=== PATIENT | female | born 1990 | race African-American/Black ===

== ENCOUNTER → 2017-11-13 | Outpatient (CLI) | payer BC ==
[2017-11-13 11:16] LABS: BASOPHILS % 0.6 % (0.0-2.0); EOSINOPHILS % 6.9 % (0.0-5.0); HEMATOCRIT. 40.1 % (36.0-48.0); HEMOGLOBIN. 13.5 g/dL (12.0-16.0); LYMPHOCYTES % 19.2 % (20.0-50.0); MEAN CORPUSCULAR HEMOGLOBIN 29.9 pg (28.0-32.0); MEAN CORPUSCULAR VOLUME 88.8 fL (81.0-99.0); MEAN PLATELET VOLUME 7.2 fl (7.4-10.4); NEUTROPHILS % 68.3 % (40.0-76.0); PLATELET 330 x1000/uL (130-400); RED BLOOD CELL COUNT 4.52 mill/uL (4.2-5.4); RED CELL DISTRIBUTION WIDTH 12.9 % (11.6-14.6)
[2017-11-13 11:17] LABS: CLARITY URINE CLEAR (CLEAR); COLOR URINE YELLOW (YELLOW); KETONES URINE NEGATIVE (NEGATIVE); LEUKOCYTE ESTERASE URINE NEGATIVE (NEGATIVE); NITRITE URINE NEGATIVE (NEGATIVE); OCCULT BLOOD URINE TRACE (NEGATIVE); PROTEIN URINE NEGATIVE (NEGATIVE); SPECIFIC GRAVITY URINE 1.003 (1.005-1.030); UROBILINOGEN URINE 0.2 E.U./dL (0.2-1.0)
[2017-11-13 11:49] LABS: CHLORIDE 107 mEq/L (98-107)
[2017-11-13 11:53] LABS: AMYLASE 50 IU/L (25-115)
[2017-11-13 11:56] LABS: LDL CHOLESTEROL 92 mg/dL (5-100)
[2017-11-13 11:58] LABS: HDL CHOLESTEROL 67 mg/dL (40-59); T4 FREE 1.12 ng/dL (0.76-1.46)
[2017-11-13 12:28] LABS: VITAMIN B12 SERUM 317 pg/mL (211-911)
== END | disposition home or self-care (01) ==
LOC: LAB 10:26
PROVIDERS: ATTEND Internal Medicine
DX: K21.9 Gastro-esophageal reflux disease without esophagitis (principal); R05 Cough; R53.83 Other fatigue
CPT/HCPCS: 36415; 80053; 80061; 81003; 82150; 82607; 84439; 84443; 84550; 85025; 85651; 86038; 86430